=== PATIENT | male | born 1990 | race Caucasian/White ===

== ENCOUNTER 2018-03-21 06:54 | Emergency (ER) | payer MEDICAID, OTHER ==
[~2018-03-21] VITALS: Ht 177.8 cm; Wt 85.0 kg
[~2018-03-21 06:54] MED LIST: ALBU17AE16 IH
[2018-03-21 07:02] VITALS: BP 113/72
[2018-03-21] MEDS ORDERED: SODIUM CHLORIDE 0.9% 1,000 ML IV ONE ×2 (07:30)
== END 2018-03-21 08:57 | disposition home or self-care (01) ==
LOC: EMS 06:55
DX: S05.52XA Penetrating wound with foreign body of left eyeball, initial encounter (principal); S05.51XA Penetrating wound with foreign body of right eyeball, initial encounter; J45.909 Unspecified asthma, uncomplicated; F17.210 Nicotine dependence, cigarettes, uncomplicated; Z71.6 Tobacco abuse counseling; X58.XXXA Exposure to other specified factors, initial encounter; Y93.89 Activity, other specified; Y92.89 Other specified places as the place of occurrence of the external cause; Y99.8 Other external cause status
CPT/HCPCS: 99284; 99406